=== PATIENT | female | born 1940 | race Caucasian/White ===

== ENCOUNTER → 2016-12-21 | Outpatient (CLI) | payer OTHER ==
[~2016-12-21] MED LIST: ALEVE220 M2 PO; ASPIRIN EC325 MG PO; BACTRIM,SEPT1 TABLET PO; BP MEDICATIONS; BYSTOLIC5 MG PO; CO Q-10200 MG PO; CRESTOR5 MG PO; HYDROCHLOROTH12.5 M1 PO; HYDROCHLOROTHIA25 MG PO; LEVOTHROID112 MCG PO; LEVOTHYROXINE100 MCG PO; LITE COAT ASPI325 M1 PO; LOW DOSE ASPIRI81 M1 PO; PRILOSEC40 MG PO; PROTONIX20 MG PO; SYNTHROID100 MCG PO; SYNTHROID25 MCG PO; TRICOR48 MG PO; VITAMIN D1000 UNIT PO; VITAMIN D31000 UNI2 PO; [UNRECOGNIZED DRUG - REMARK]
== END | disposition home or self-care (01) ==
LOC: CDC 09:14
DX: D36.13 Benign neoplasm of peripheral nerves and autonomic nervous system of lower limb, including hip (principal); R94.31 Abnormal electrocardiogram [ECG] [EKG]
CPT/HCPCS: 93000